=== PATIENT | female | born 1995 | race Two or more races ===

== ENCOUNTER 2023-07-29 12:42 | Emergency (ER) | payer MEDICAID, OTHER ==
[~2023-07-29] VITALS: Ht 172.7 cm; Wt 84.2 kg
[2023-07-29 14:49] VITALS: BP 146/73; PULSE 67; RESP 16; TEMP 97.7; O2SAT 99
[2023-07-31 07:07] LABS: RPR Non Reactive (Non Reactive)
== END 2023-07-29 16:00 | disposition home or self-care (01) ==
LOC: ER 12:42
DX: K13.70 Unspecified lesions of oral mucosa (principal); Z32.02 Encounter for pregnancy test, result negative; Z20.6 Contact with and (suspected) exposure to human immunodeficiency virus [HIV]
CPT/HCPCS: 81025; 86256; 86592; 86703

== ENCOUNTER 2024-04-06 12:34 | Emergency (ER) | payer MEDICAID ==
[~2024-04-06] VITALS: Ht 167.6 cm; Wt 84.7 kg
[2024-04-06 13:22] VITALS: BP 124/73; PULSE 93; RESP 16; TEMP 98.9; O2SAT 97
== END 2024-04-06 14:48 | disposition home or self-care (01) ==
LOC: ER 12:34
DX: S60.452A Superficial foreign body of right middle finger, initial encounter (principal); W22.8XXA Striking against or struck by other objects, initial encounter; Y93.89 Activity, other specified; Y92.89 Other specified places as the place of occurrence of the external cause; Y99.8 Other external cause status